=== PATIENT | male | born 1975 | race Caucasian/White ===

== ENCOUNTER 2023-12-22 20:30 | Emergency (ER) | payer SELFPAY ==
[2023-12-22 21:04] VITALS: TEMP 97.5
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
[2023-12-22 23:28] LABS: Amphetamine Screen,Urine Not Detected (NotDetected); Barbiturate Screen,Urine Not Detected (NotDetected); Benzodiazepines Screen,Urine Not Detected (NotDetected); Cocaine Screen,Urine Not Detected (NotDetected); Methadone Screen, Urine Not Detected (NotDetected); Opiate Screen,Urine Not Detected (NotDetected); Oxycodone Screen, Urine Not Detected (NotDetected); Phencyclidine Screen,Urine Not Detected (NotDetected); Tricyclic Antidepressant,Urine Not Detected (NotDetected); Urn Cannabinoid Scrn Not Detected (NotDetected)
[2023-12-22] MEDS: LORazepam 2 MG/ML INJ IM STA (23:48)
[2023-12-23 00:36] VITALS: BP 128/86; PULSE 72; RESP 16
== END 2023-12-23 00:02 | disposition home or self-care (01) ==
LOC: EC 20:30
DX: F32.A Depression, unspecified (principal); R45.851 Suicidal ideations; F17.200 Nicotine dependence, unspecified, uncomplicated
CPT/HCPCS: 99284; 96372; 82075; 80306; J2060

== ENCOUNTER 2024-09-28 10:35 | Inpatient (IN) | payer MEDICAID, OTHER ==
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
[2024-09-28 15:28] LABS: Appearance,Urine Clear (Clear); Bilirubin,Urine Negative (Negative); Blood,Urine Small (Negative); Color,Urine Light Yellow; Glucose,Urine (UA) Negative (Negative); Ketones,Urine Negative (Negative); Leukocyte Esterase,Urine Negative (Negative); Mucus,Urine Rare /hpf; Nitrite,Urine Negative (Negative); PH, Urine 5.5 (5.0-8.0); Protein,Urine Negative (Negative); RBC,Urine 2 /hpf (0-5); Specific Gravity,Urine 1.026 (1.001-1.035); Squamous Epithelial Cell,Urine <1 /hpf (0-4); Urobilinogen,Urine <2.0 mg/dL (<2.0); WBC,Urine <1 /hpf (0-5)
[2024-09-28 15:37] LABS: Amphetamine Screen,Urine Detected (NotDetected); Barbiturate Screen,Urine Not Detected (NotDetected); Benzodiazepines Screen,Urine Not Detected (NotDetected); Cocaine Screen,Urine Not Detected (NotDetected); Methadone Screen, Urine Not Detected (NotDetected); Opiate Screen,Urine Not Detected (NotDetected); Oxycodone Screen, Urine Not Detected (NotDetected); Phencyclidine Screen,Urine Not Detected (NotDetected); Tricyclic Antidepressant,Urine Not Detected (NotDetected); Urn Cannabinoid Scrn Not Detected (NotDetected)
[2024-09-28] MEDS ORDERED: MAGNESIUM HYDROXIDE 2,400 MG/30 ML CUP PO PRN (22:10)
[2024-09-28] MEDS ORDERED: LORazepam 2 MG/ML INJ IM PRN (22:10)
[2024-09-28] MEDS ORDERED: ACETAMINOPHEN TAB 325 MG TAB PO PRN (22:10)
[2024-09-28] MEDS ORDERED: haloperidoL 5 MG TAB PO PRN (22:10)
[2024-09-28] MEDS ORDERED: MAG HYDROX/AL HYDROX/SIMETH 355 ML BOTTLE PO PRN (22:10)
[2024-09-28] MEDS ORDERED: IBUPROFEN 600 MG TAB PO PRN (22:10)
[2024-09-28] MEDS ORDERED: HALOPERIDOL LACTATE 5 MG/ML 1 ML VIAL IM PRN (22:10)
[2024-09-28] MEDS: LORazepam 1 MG TAB PO PRN (22:58)
[2024-09-29] MEDS: NICOTINE 14MG/24HR PATCH TRANSDERM SCH (09:42)
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
[2024-09-29] MEDS: FLUoxetine HCL 20 MG CAP PO SCH (11:08)
[2024-09-29 11:26] LABS: Basophils % (A) 0 %; Eosinophils # (A) 0.3 k/uL (0-0.7); Eosinophils % (A) 5 %; HGB 13.5 gm/dL (13.0-17.5); Lymphocytes # (A) 1.6 k/uL (1.0-4.8); Lymphocytes % (A) 28 %; MCH 29.9 pg (25.0-35.0); MCHC 33.1 g/dL (31.0-37.0); MCV 90.3 fL (80.0-100.0); Mean Platelet Volume 7.9; Monocytes # (A) 0.5 k/uL (0-1.0); Monocytes % (A) 9 %; Neutrophils # (A) 3.3 k/uL (1.3-7.7); Neutrophils % (A) 56 %; Platelet Count 331 k/uL (150-450); RBC 4.54 m/uL (4.30-5.90); RDW 13.4 % (11.5-15.5); WBC 5.9 k/uL (3.8-10.6)
[2024-09-29 11:47] LABS: ALT 56 U/L (4-49); AST 40 U/L (17-59); African American GFR (CKD) >90 (>60 ml/min/1.73 sqM); Albumin 4.3 g/dL (3.5-5.0); Alkaline Phosphatase 69 U/L (38-126); Anion Gap 11 mmol/L; Blood Urea Nitrogen 14 mg/dL (9-20); Calcium 9.4 mg/dL (8.4-10.2); Carbon Dioxide 26 mmol/L (22-30); Chloride 103 mmol/L (98-107); Glucose 96 mg/dL (74-99); Non-African American GFR(CKD) >90 (>60 ml/min/1.73 sqM); Potassium 4.4 mmol/L (3.5-5.1); Sodium 140 mmol/L (137-145); Total Bilirubin 0.4 mg/dL (0.2-1.3)
[2024-09-29 23:12] LABS: LDL Cholesterol,Calculated 148.7 mg/dL (0.0-131.0)
--- NOTE | 2024-09-30 03:56 | P.PN ---
Progress Note - Text Progress Note Date: 09/30/24 patient refused medical evaluation at this time
--- NOTE | 2024-09-30 11:05 | P.PN ---
Progress Note - Text Progress Note Date: 09/30/24 Dictation was produced using tok tok tok dictation software. Please excuse any grammatical, word or spelling errors. Interval history: Patient was seen in the hallway and was directable and agreeable to speak with the junior underwriter in the office for psychiatric follow-up. States that he is feeling "alright" today, reported that he slept well last night. He reported that depression and anxiety are at the moderate side, reported that he has been thinking about all the problems that he has been dealing with, he rated depression at 6-7/10, and anxiety at 7/10. He denied any current suicidal or homicidal thoughts or behavior, intention or plan. he admitted to good appetite. He denied any current AVH. He reported that he is getting along well with everyone in the unit. He states that he took the Prozac yesterday and reported that he is tolerating well, denied any side effects. Patient was seen [wandering the hallways] and was directable and agreeable to speak with junior underwriter. []. At this time patient denies any suicidal or homicidal ideations intent or plan. Denies any Auditory or visual hallucinations. Patient denies any side effects from the medications and has been compliant with meds. Mental status exam: General Appearance: Patient appears to be stated age is alert, directable, and attempts to cooperate. Patient appears to have fair hygiene and grooming. Behavior: Patient is seated without any agitated behavior. Speech: Patient's speech is fluent and nonpressured. Mood/Affect: Patient reports their mood is depressed, affect is flat, congruent and constricted, he was emotional and cried multiple times during the interview. Suicidality/Homicidality: Patient denies having any homicidal ideation intent or plan. Denies any suicidal ideations intent or plan Perceptions: Patient denies any visual hallucinations and denies any auditory hallucinations Though content/process: There is no evidence of any delusional thought content and thought process is linear and goal-directed. Memory and concentration: AOX3, grossly intact for the purposes of this session. Can spell "WORLD" backwards Judgment and insight: poor IMPRESSIONS: Patient is a 49 years old male with past psychiatric history of depression, presented to the ED for increasing depression and suicidal ideation in context of his current stressors which include quitting his job, losing his house and problems with the law. He has been struggling with depression for a long time, dealing with a lot of stress in his life, finds it hard to cope with his current stressors. He has been overwhelmed with finances, legal trouble and has a reported history of alcohol and cannabis use in the past. The patient would benefit from learning coping skills, having an outpatient team including therapist to help with coping and communication skills following discharge. Will continue with current diagnosis. Patient continues to meet criteria for inpatient psychiatric admission for symptom stabilization and safety. Patient will be maintained on current psychotropic medication regimen, Prozac 20 mg po daily, may consider increasing the dose in the next day or two. Monitor for medication compliance and for any psychotropic medication side effects. Will continue to monitor ongoing response to treatment. Encouraged participation in milieu. -Major depressive disorder, recurrent, severe with suicidal ideation -Rule out adjustment disorder with anxious and depressive mood -Generalized anxiety disorder -Alcohol use disorder, in sustained remission -Cannabis use disorder in sustained remission -Nicotine use disorder PLAN: -Patient is admitted under voluntary status to [facility] for stabilization of psychiatric symptoms and safety. Patient has signed adult voluntary form and medication consent and is placed in patient's chart. -Medications : Continue Prozac 20 mg p.o. daily -Ativan and Haldol PRN for agitation/aggression -Patient was counselled on substance abuse and he has been without alcohol or cannabis for more than a year -Patient was informed of the risks, benefits and side effects of the medication and patient verbally consented to taking the medications. Patient signed med consent form and was placed in chart. -Internal Medicine consult to perform medical evaluation and physical. -NRT - nicotine patch -SW on board for discharge planning. Encourage patient to participate in groups to work on coping skills.
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
[2024-10-02 07:10] VITALS: RESP 16
[2024-10-02] MEDS: amLODIPine 5 MG TAB PO SCH (08:07)
[2024-10-02] MEDS: FLUoxetine HCL 20 MG CAP PO SCH (08:08)
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
[2024-10-02] MEDS: ATORVASTATIN 20 MG TAB PO SCH (21:19)
[2024-10-03 07:22] VITALS: BP 128/69; PULSE 81; TEMP 98.6
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
== END 2024-10-03 13:45 | disposition home or self-care (01) | DRG 751 ==
LOC: EC 10:35 → SUPCPDRO 10:35 → 3MHU 21:57
PROVIDERS: ADMIT Psychiatry & Neurology Psychiatry; ATTEND Psychiatry & Neurology Psychiatry
DX: F33.2 Major depressive disorder, recurrent severe without psychotic features (principal); F41.1 Generalized anxiety disorder; F10.21 Alcohol dependence, in remission; F12.11 Cannabis abuse, in remission; F17.200 Nicotine dependence, unspecified, uncomplicated; I10 Essential (primary) hypertension; R45.851 Suicidal ideations; G89.29 Other chronic pain; M54.50 Low back pain, unspecified; E78.5 Hyperlipidemia, unspecified; R73.03 Prediabetes; Z56.0 Unemployment, unspecified; Z59.86 Financial insecurity; Z79.899 Other long term (current) drug therapy
CPT/HCPCS: 80053; 80061; 80306; 81001; 83036; 84443; 85025; 87636; 99285